=== PATIENT | male | born 1945 | race Caucasian/White ===

== ENCOUNTER 2021-04-13 11:06 | Day surgery (SDC) | payer MEDICARE, BC ==
[2021-04-13] VITALS (7 sets, daily range): BP systolic 114–149; BP diastolic 56–80
[~2021-04-13] VITALS: Ht 180.3 cm; Wt 88.9 kg
[2021-04-13] MEDS ORDERED: LORazepam 0.5 MG tablet PO PRN (11:30)
[2021-04-13] MEDS ORDERED: diphenhydrAMINE 25mg capsule PO PRN (11:30)
[2021-04-13] MEDS ORDERED: normal saline 1,000 ML IV SCH (11:30)
[2021-04-13] MEDS ORDERED: DILT120T3 PO (11:53)
[2021-04-13] MEDS ORDERED: FLO0.4C PO (11:53)
[2021-04-13] MEDS ORDERED: ATOR40TA72 PO (11:53)
[2021-04-13] MEDS ORDERED: APIX5TAB3 PO (11:53)
[2021-04-13] MEDS ORDERED: NITR0.4T48 (11:53)
[2021-04-13] MEDS ORDERED: ESOM20CA38 PO (11:54)
[2021-04-13] MEDS ORDERED: RED600TA PO (11:58)
[2021-04-13] MEDS ORDERED: ASPI-1265 PO (11:58)
[2021-04-13] MEDS ORDERED: omega 3 (11:58)
[2021-04-13] MEDS ORDERED: UBID60CA8 PO (11:58)
[2021-04-13] MEDS ORDERED: LIDOcaine/PRILOcaine 5gm cream TP ONE (12:15)
[2021-04-13] MEDS ORDERED: nitroGLYCERIN-Tridil 50MG/D5W 250 ML IV ONE (12:32)
[2021-04-13] MEDS ORDERED: verapamil 2.5 mg/ml inj IV ONE (12:32)
[2021-04-13] MEDS ORDERED: iohexol 350MG/ML 100ml bottle IV ONE ×2 (12:33→13:27)
[2021-04-13] MEDS ORDERED: fentaNYL/PF 50MCG/1 ML 2ML syringe ONE (12:33)
[2021-04-13] MEDS ORDERED: midazolam 1 mg/ML 2ml injection ONE ×2 (12:33→13:56)
[2021-04-13] MEDS ORDERED: LIDOcaine 1% (10mg/ml)w/preservative injection 20ml MDV ONE (12:33)
[2021-04-13] MEDS ORDERED: heparin 1,000unit/ml 10ml vial 10 ML ONE (12:33)
[2021-04-13] MEDS ORDERED: ticagrelor 90mg tablet ONE (14:22)
[2021-04-13] MEDS ORDERED: HYDROcodone/acetaminophen 5mg/325mg tablet PO PRN (15:05)
[2021-04-13] MEDS ORDERED: OXAZEpam 15mg capsule PO PRN (15:05)
[2021-04-13] MEDS ORDERED: HYDROcodone/acetaminophen 10/325mg tab PO PRN (15:05)
[2021-04-13] MEDS ORDERED: proCHLORperazine 10 MG/2 ml inj IV PRN (15:05)
[2021-04-13] MEDS ORDERED: ondansetron/PF 4mg/2ml inj IV PRN (15:05)
[2021-04-13] MEDS ORDERED: ticagrelor 90mg tablet PO SCH (20:00)
== END 2021-04-13 17:20 | disposition home or self-care (01) ==
LOC: SSTAY O 11:06
PROVIDERS: ATTEND Internal Medicine Interventional Cardiology
DX: R07.89 Other chest pain (principal); I25.111 Atherosclerotic heart disease of native coronary artery with angina pectoris with documented spasm; I10 Essential (primary) hypertension; E78.5 Hyperlipidemia, unspecified; K21.9 Gastro-esophageal reflux disease without esophagitis; Z88.5 Allergy status to narcotic agent; Z88.2 Allergy status to sulfonamides; Z79.899 Other long term (current) drug therapy; Z79.82 Long term (current) use of aspirin; Z79.01 Long term (current) use of anticoagulants; Z90.49 Acquired absence of other specified parts of digestive tract; Z98.890 Other specified postprocedural states; Z82.49 Family history of ischemic heart disease and other diseases of the circulatory system; Z80.9 Family history of malignant neoplasm, unspecified
CPT/HCPCS: 93005; 93458; 99152; 99153; C1725; C1751; C1760; C1769; C1874; C1894; C9600; J1644; J2001; J2250; J3010; J7030; Q0163; Q9967; A4620; A5120; J3490